=== PATIENT | male | born 1970 | race Caucasian/White ===

== ENCOUNTER 2018-10-18 18:28 | Emergency (ER) | payer OTHER ==
[~2018-10-18] VITALS: Ht 188 cm; Wt 103.5 kg
[2018-10-18] MEDS ORDERED: IBUPROFEN 600 MG TABLET ONE (20:51)
[2018-10-18] MEDS ORDERED: IBUPROFEN 200 MG TABLET PO ONE (21:00)
[2018-10-18 21:43] VITALS: BP 144/84
== END 2018-10-18 21:45 | disposition home or self-care (01) ==
LOC: ED 21:39
DX: S92.244A Nondisplaced fracture of medial cuneiform of right foot, initial encounter for closed fracture (principal); X58.XXXA Exposure to other specified factors, initial encounter; Y93.89 Activity, other specified; Y92.89 Other specified places as the place of occurrence of the external cause; Y99.8 Other external cause status
CPT/HCPCS: 29515; 72141; 99284

== ENCOUNTER → 2020-04-24 | Outpatient (CLI) | payer OTHER | END | disposition home or self-care (01) | LOC: CVU 07:29 | PROVIDERS: ATTEND Internal Medicine Cardiovascular Disease | DX: R00.2 Palpitations (principal); R07.9 Chest pain, unspecified; I10 Essential (primary) hypertension | CPT/HCPCS: 93306 ==